=== PATIENT | female | born 1950 | race Caucasian/White ===

== ENCOUNTER 2019-04-12 18:12 | Emergency (ER) | payer MEDICARE, OTHER ==
[~2019-04-12] VITALS: Ht 165.1 cm; Wt 72.6 kg
[2019-04-12] MEDS ORDERED: METFORMIN HCL500 M3 PO (18:24)
[2019-04-12] MEDS ORDERED: CLONIDINE HCL0.2 M2 TRANSDERM (18:25)
[2019-04-12 19:12] LABS: ABSOLUTE BASOPHILS 0.1 thou/uL (0.0-0.2); ABSOLUTE EOSINOPHILS 0.1 thou/uL (0.0-0.7); ABSOLUTE LYMPHOCYTES 1.8 thou/uL (0.8-5.3); ABSOLUTE MONOCYTES 0.5 thou/uL (0.0-1.2); ABSOLUTE NEUTROPHILS 3.6 thou/uL (1.6-8.1); BASOPHILS 0.9 %; EOSINOPHILS 1.5 %; HEMATOCRIT 38.9 % (37.0-47.0); HEMOGLOBIN 13.7 gm/dL (12.0-15.0); LYMPHOCYTES 29.2 %; MCH 32.8 pg (26.0-34.0); MCHC 35.3 g/dL (28.0-37.0); MCV 92.9 fL (80.0-100.0); MONOCYTES 7.8 %; MPV 7.3 fl. (7.2-11.1); NUCLEATED RBCS 0 /100WBC; PLATELET COUNT* 231 thou/uL (150-400); POLYS 60.6 %; RBC 4.18 mil/uL (4.20-5.00); RDW-CV 12.5 % (10.5-14.5)
[2019-04-12 19:23] LABS: CALCIUM 8.8 mg/dL (8.5-10.1); POTASSIUM 3.5 mmol/L (3.5-5.1)
[2019-04-12 19:27] LABS: APTT 25.3 Seconds (25.0-31.3); INR 1.1
[2019-04-12 19:36] LABS: ALBUMIN 4.1 g/dL (3.4-5.0); TOTAL BILIRUBIN 0.6 mg/dL (<0.1-1.0); TOTAL PROTEIN 7.7 g/dL (6.4-8.2)
[2019-04-12 22:02] LABS: URINE BILIRUBIN NEGATIVE (Negative); URINE BLOOD NEGATIVE (Negative); URINE CLARITY CLEAR; URINE COLOR YELLOW; URINE GLUCOSE-RANDOM NEGATIVE (Negative); URINE KETONES NEGATIVE (Negative); URINE LEUKOCYTES-REFLEX NEGATIVE (Negative); URINE NITRITE-REFLEX NEGATIVE (Negative); URINE PROTEIN NEGATIVE (Negative); URINE SPECIFIC GRAVITY <= 1.005 (1.005-1.030); URINE UROBILINOGEN 0.2 E.U./dl (0.2-1.0)
[2019-04-12 22:03] VITALS: BP 126/72
[2019-04-14 03:06] LABS: GLYCOHEMOGLOBIN (HGB A1C) 5.8 % (4.8-5.6)
--- NOTE | 2019-04-14 10:08 | EKG ---
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
== END 2019-04-12 22:04 | disposition home or self-care (01) ==
LOC: M.ERS 18:12
PROVIDERS: Emergency Medicine; Family Medicine
DX: R00.2 Palpitations (principal); I10 Essential (primary) hypertension; E11.9 Type 2 diabetes mellitus without complications

== ENCOUNTER → 2019-06-10 | Outpatient (CLI) | payer MEDICARE, OTHER ==
[~2019-06-10] MED LIST: CLONIDINE HCL0.2 M2 TRANSDERM; METFORMIN HCL500 M3 PO
--- NOTE | 2019-06-10 15:40 | 2DMMODE ---
[place] [address] 2 D/M-MODE ECHOCARDIOGRAM Name: DESMONDALON CHANGLisette Villar Room: [facility]#: [id number] Admission: 06/10/19 Attend Phys: Jason Mary, Discharge: Date of : 52 Date of Service: 06/10/19 1539 Report #: [id number] THIS REPORT FOR: cc: Abraham Lima MD, Rene P. MD Blick, David R. MD [facility] ~ APPROVED REPORT Study performed: 06/10/2019 12:45:42 EXAM: Comprehensive 2D, Doppler, and color-flow Echocardiogram Patient Location: Out-Patient Status: routine BSA: 1.80 HR: 70 bpm BP: 110/70 mmHg Rhythm: NSR Other Information Study Quality: Good Indications Palpitations 2D Dimensions IVSd: 9.65 (7-11mm) LVOT Diam: 19.97 (18-24mm) LVDd: 43.57 mm PWd: 9.30 (7-11mm) Ascending Ao: 29.18 (22-36mm) LVDs: 36.45 (25-40mm) Aortic Root: 24.72 mm Volumes Left Atrial Volume (Systole) LA ESV Index: 26.80 mL/m2 Aortic Valve AoV Peak [place].: 1.17 m/s AO Peak Gr.: 5.51 mmHg LVOT Max P.32 mmHg AO Mean Gr.: 3.69 mmHg LVOT Mean P.70 mmHg LVOT Max V: 0.91 m/s AO V2 VTI: 25.29 cm LVOT Mean V: 0.60 m/s SHELBIE (VTI): 2.75 cm2 LVOT V1 VTI: 22.22 [place] [address] 2 D/M-MODE ECHOCARDIOGRAM Name: FREDDY MENDEZ Room: [facility]#: [id number] Admission: 06/10/19 Attend Phys: Jason Mary, Discharge: Date of : 52 Date of Service: 06/10/19 1539 Report #: [id number] Mitral Valve E/A Ratio: 1.12 MV Decel. Time: 201.75 ms MV E Max [place].: 1.10 m/s MV PHT: 58.51 ms MVA (PHT): 3.76 cm2 TDI E/Lateral E': 10.00 E/Medial E': 10.00 Medial E' Darien.: 0.11 m/s Lateral E' [place]arien.: 0.11 m/s Pulmonary Valve PV Peak [place].: 1.08 m/s PV Peak Gr.: 4.65 mmHg Tricuspid Valve RAP Estimate: 5.00 mmHg TR Peak Gr.: 23.11 mmHg RVSP: 28.00 mmHg PA Pressure: 28.00 mmHg Left Ventricle The left ventricle is normal size. There is normal LV segmental wall motion. There is normal left ventricular wall thickness. Left ventricular systolic function is normal. The left ventricular ejection fraction is within the normal range. LVEF is 55-60%. The left ventricular diastolic function is normal. Right Ventricle The right ventricle is normal size. The right ventricular systolic function is normal. Atria The left atrium size is normal. The right atrium size is normal. Aortic Valve The aortic valve is normal in structure. No aortic regurgitation is present. There is no aortic valvular stenosis. Mitral Valve The mitral valve is normal in structure. Mild mitral regurgitation. No evidence of mitral valve stenosis. Tricuspid Valve The tricuspid valve is normal in structure. Mild tricuspid [place] [address] 2 D/M-MODE ECHOCARDIOGRAM Name: FREDDY MENDEZ Room: [facility]#: [id number] Admission: 06/10/19 Attend Phys: Jason Mary, Discharge: Date of : 52 Date of Service: 06/10/19 1539 Report #: [id number] Pulmonic Valve Pulmonic valve is not well visualized. There is no pulmonic valvular regurgitation. Great Vessels The aortic root is normal in size. IVC is normal in size and collapses >50% with inspiration. Pericardium There is no pericardial effusion. <Conclusion> LVEF is 55-60%. Mild mitral regurgitation. <ELECTRONICALLY SIGNED> By: Eric Lynn MD, FACC 06/10/19 1539 1539 1539 Eric Lynn MD, FACC /INF
--- NOTE | 2019-06-10 17:02 | CARDNUC ---
[place] [address] CARDIAC NUCLEAR IMAGING REPORT Name: FREDDY MENDEZ Aurea Room: [facility]#: [id number] Admission: 06/10/19 Attend Phys: Jason Mary, Discharge: Date of : 52 Date of Service: 06/10/19 1701 Report #: [id number] THIS REPORT FOR: cc: Abraham Lima MD, Rene P. MD Biggs, F. Douglas MD [facility] ~ APPROVED REPORT Study performed: 06/10/2019 15:12:13 Exam: Nuclear Stress Test Indication: Chest pain, Dyspnea, Palpitations , Lightheadedness. Patient Location: Out-Patient Stress Tech: Iris Dalal Stress Nurse: Josefina Fallon R.N. Ht: 5 ft 5 in Wt: 161 lbs BSA: 1.80 m2 BMI: 26.78 Medical History Medical History: Angina, HTN, Hyperlipidemia, SOB, Palpitations, Lightheadedness, Left Arm Discomfort, LE edema, Sleep Apnea, Percordial pain, HX Hep C, Pre-Diabetic. Medications: Clonidine Patch, Metformin, Spironolactone (PRN), Mg Citrate. Allergies: No known drug allergies Cardiac Risk Factors: Age, Pre-Diabetic, SOB, HTN, Hyperlipidemia, Sleep Apnea, LE edema. Previous Cardiac Procedures: None Pretest Chest Pain Characteristics: No chest pain Exercise History: Physically active Physical Disabilities: None Meds Held (24 hrs): None Stress Test Details Stress Test: Exercise stress testing was performed using a Quirino protocol. HR Resting HR: 65 bpm Max Heart Rate (APMHR): 153 bpm Max HR Achieved: 162 bpm Target HR (85% APMHR): 130 bpm % of APMHR: 105 Recovery HR: 97 bpm HR response to stress: Normal [place] [address] CARDIAC NUCLEAR IMAGING REPORT Name: FREDDY MENDEZ Room: [facility]#: [id number] Admission: 06/10/19 Attend Phys: Jason Mary, Discharge: Date of : 52 Date of Service: 06/10/19 1701 Report #: [id number] Resting BP: 128/69 mmHg Max BP: 204/82 mmHg BP response to stress: Abnormal hypertensive response to stress. ECG Resting ECG: Sinus Rhythm, normal EKG Stress ECG: Sinus Tachycardia, with mild upsloping ST changes ST Change: Upsloping ST depression Maximum ST Deviation: 1 mm Arrhythmia: VPC's that are multiform with 2 couplets Recovery ECG: sinus tachycardia with mild upsloping ST changes Recovery ST Change: Upsloping ST depression Recovery ST Deviation: 0.5 mm Recovery Arrhythmia: None Clinical Reason for Termination: Completed protocol, Maximal effort, Patient Request. Stress Symptoms: Abdominal discomfort (5/10), Dyspnea, Lightheadedness. Exercise duration: 7 min 23 sec Exercise capacity: 9.17 METs Overall Exercise Capacity for Age: Superior Nurse Comments A 68 year old female presented for a Quirino Protocol Nuclear Stress Test r/t chest pain/pre-cordial pain, dyspnea, left arm pain, palpitations and lightheadedness. Treadmill well tolerated. Recovery unremarkable. Patient was escorted by staff to Nuclear Medicine for imaging. Patient was stable and stated she felt good at that time. Stress ECG Conclusion ECG: Non-ischemic NM EXAM: Myocardial Perfusion REST/STRESS Imaging Protocol: Rest Tc-99m/Stress Tc-99m 1 day Resting Data Rest SPECT myocardial perfusion imaging [place] [address] CARDIAC NUCLEAR IMAGING REPORT Name: FREDDY MENDEZ Room: [facility]#: [id number] Admission: 06/10/19 Attend Phys: Jason Mary, Discharge: Date of : 52 Date of Service: 06/10/19 1701 Report #: [id number] position 30 minutes following the intravenous injection of 9.6 mCi of Tc-99m Sestamibi. Time of rest injection: 13:45 The images were gated to evaluate regional wall motion and calculate left ventricular ejection fraction. Administration Route: IV Administration Site: Left Arm Exercise Stress At peak stress, the patient was injected intravenously with 34.0mCi of Tc-99m Sestamibi. Time of stress injection: 15:25 Administration Route: IV Administration Site: Left Arm Heart Rate at time of stress injection: 162 bpm. Gated Stress SPECT was performed 30 minutes after stress injection. The images were gated to evaluate regional wall motion and calculate left ventricular ejection fraction. Prone imaging was performed. Study Quality Study: Good Artifact: Mild Soft tissue attenuation artifact Lung Uptake: Normal Study Data At rest, the left ventricular ejection fraction was 81%.. Post stress, the left ventricular ejection was 70%.. SSS: 2 SRS: 3 SDS: -1 TID = 1.14. Perfusion The resting study demonstrated a moderate in size mild intensity inferior defect. The post stress images demonstrate a small in size and mild intensity inferior defect. Prone images were obtained and were normal. There were no defects seen. There are no reversible defects seen is no evidence of myocardial ischemia. Images were reviewed using Space Pencil. Wall Motion Normal left ventricular wall motion[place] [address] CARDIAC NUCLEAR IMAGING REPORT Name: FREDDY MENDEZ Room: [facility]#: [id number] Admission: 06/10/19 Attend Phys: Jason Mary, Discharge: Date of : 52 Date of Service: 06/10/19 1701 Report #: [id number] ECG Findings: negative for ischemia Clinical Findings: equivocal Nuclear Findings: negative for ischemia Exercise Capacity: superior Left Ventricular Function: normal Risk Study: low Normal study. No scintigraphic evidence for myocardial ischemia or scar. <Conclusion> ECG: Non-ischemic <ELECTRONICALLY SIGNED> By: Estephania Espinoza MD, FACC 06/10/191700 00 00 Estephania Espinoza MD, FACC /INF
== END ==
LOC: M.CRD 05-09 07:45
DX: I08.1 Rheumatic disorders of both mitral and tricuspid valves (principal); I10 Essential (primary) hypertension; E78.5 Hyperlipidemia, unspecified; Z79.899 Other long term (current) drug therapy

== ENCOUNTER 2019-10-23 11:13 | Observation (INO) | payer MEDICARE, OTHER ==
[~2019-10-23] VITALS: Ht 165.1 cm; Wt 71.7 kg
[2019-10-23 11:19] VITALS: BP 179/87
[2019-10-23 11:42] LABS: ABSOLUTE BASOPHILS 0.1 thou/uL (0.0-0.2); ABSOLUTE EOSINOPHILS 0.1 thou/uL (0.0-0.7); ABSOLUTE LYMPHOCYTES 1.3 thou/uL (0.8-5.3); ABSOLUTE MONOCYTES 0.3 thou/uL (0.0-1.2); ABSOLUTE NEUTROPHILS 3.3 thou/uL (1.6-8.1); EOSINOPHILS 1.6 %; HEMATOCRIT 39.9 % (37.0-47.0); HEMOGLOBIN 13.9 gm/dL (12.0-15.0); LYMPHOCYTES 26.2 %; MCH 32.9 pg (26.0-34.0); MCHC 34.8 g/dL (28.0-37.0); MCV 94.5 fL (80.0-100.0); MONOCYTES 6.6 %; MPV 7.2 fl. (7.2-11.1); NUCLEATED RBCS 0 /100WBC; PLATELET COUNT* 237 thou/uL (150-400); POLYS 64.6 %; RBC 4.22 mil/uL (4.20-5.00); RDW-CV 12.6 % (10.5-14.5)
[2019-10-23 11:56] LABS: APTT 25.1 Seconds (25.0-31.3); INR 1.1
[2019-10-23 11:59] LABS: CALCIUM 8.8 mg/dL (8.5-10.1); POTASSIUM 3.9 mmol/L (3.5-5.1)
[2019-10-23 12:09] LABS: ALBUMIN 4.4 g/dL (3.4-5.0); CK-MB MASS 2.3 ng/mL (<0.5-3.6); TOTAL BILIRUBIN 1.2 mg/dL (<0.1-1.0); TOTAL PROTEIN 7.9 g/dL (6.4-8.2)
[2019-10-23 13:19] LABS: URINE BILIRUBIN NEGATIVE (Negative); URINE BLOOD NEGATIVE (Negative); URINE CLARITY CLEAR; URINE COLOR YELLOW; URINE GLUCOSE-RANDOM NEGATIVE (Negative); URINE KETONES NEGATIVE (Negative); URINE LEUKOCYTES-REFLEX NEGATIVE (Negative); URINE NITRITE-REFLEX NEGATIVE (Negative); URINE PROTEIN TRACE (Negative); URINE UROBILINOGEN 0.2 E.U./dl (0.2-1.0)
[2019-10-23 14:59] VITALS: BP 141/75
[2019-10-23 15:15] VITALS: BP 139/84
--- NOTE | 2019-10-23 15:46 | EKG ---
[place] [address] ELECTROCARDIOGRAM REPORT Name: PARKERBONNIEFREDDY CHANG Room: [address] M[address]R.#: [id number] Admission: 10/23/19 Attend Phys: Corwin Ragsdale, Discharge: Date of : 52 Date of Service: 10/23/19 1115 Report #: [id number] THIS REPORT FOR: //name// [facility] ED Test Date: 2019-10-23 Test Time: 11:15:39 Pat Name: FREDDY MENDEZ Department: Room: [facility] Gender: F Master Carpenter: JEANNIE : 1950 Requested By: Jacob Herrera Order Number: [id number] MD: Jason Mary Measurements Intervals [place] Rate: 107 P: 71 VT: 150 QRS: 15 QRSD: 99 T: 43 QT: 349 QTc: 466 Interpretive Statements Sinus tachycardia Probable left atrial enlargement RSR' in V1 or V2, right VCD or RVH Compared to ECG 04/12/2019 18:18:41 No significant changes Electronically Signed On 10-23-2019 15:46:04 CDT by Jason Mary [email or web address] <ELECTRONICALLY SIGNED> By: Jason Mary MD, FACC 10/23/19 1546 1115 1115 Jason Mary MD, FAC /EPI
[2019-10-23 20:00] VITALS: BP 130/70
[2019-10-24] VITALS: BP 128/72
[2019-10-24 04:00] VITALS: BP 110/66
[2019-10-24 05:03] LABS: ABSOLUTE BASOPHILS 0.1 thou/uL (0.0-0.2); ABSOLUTE EOSINOPHILS 0.2 thou/uL (0.0-0.7); ABSOLUTE LYMPHOCYTES 1.5 thou/uL (0.8-5.3); ABSOLUTE MONOCYTES 0.5 thou/uL (0.0-1.2); ABSOLUTE NEUTROPHILS 2.1 thou/uL (1.6-8.1); BASOPHILS 1.4 %; EOSINOPHILS 3.5 %; HEMATOCRIT 37.5 % (37.0-47.0); HEMOGLOBIN 13.2 gm/dL (12.0-15.0); LYMPHOCYTES 33.9 %; MCH 33.2 pg (26.0-34.0); MCHC 35.2 g/dL (28.0-37.0); MCV 94.4 fL (80.0-100.0); MONOCYTES 11.5 %; MPV 7.5 fl. (7.2-11.1); NUCLEATED RBCS 0 /100WBC; PLATELET COUNT* 209 thou/uL (150-400); POLYS 49.7 %; RBC 3.97 mil/uL (4.20-5.00); RDW-CV 12.2 % (10.5-14.5); WBC 4.3 thou/uL (4.0-11.0)
[2019-10-24 05:25] LABS: CALCIUM 8.6 mg/dL (8.5-10.1); CREATININE 0.9 mg/dL (0.6-1.3); POTASSIUM 4.2 mmol/L (3.5-5.1)
[2019-10-24] MEDS ORDERED: PROPRANOLOL 1010 MG PO (11:22)
[2019-10-24 11:24] VITALS: BP 110/66
== END 2019-10-24 11:45 | disposition home or self-care (01) ==
LOC: M.ERS 11:13 → M.TBA 12:05 → M.2W 15:11
PROVIDERS: Family Medicine; ADMIT Internal Medicine; ATTEND Internal Medicine
DX: R00.2 Palpitations (principal); R00.1 Bradycardia, unspecified; I10 Essential (primary) hypertension; E11.9 Type 2 diabetes mellitus without complications; F41.9 Anxiety disorder, unspecified; R42 Dizziness and giddiness; Z86.19 Personal history of other infectious and parasitic diseases